=== PATIENT | female | born 1965 | race Caucasian/White ===

== ENCOUNTER 2017-12-08 09:46 | Outpatient (CLI) | payer OTHER ==
[2017-12-08] MEDS ORDERED: IOPAMIDOL-300 100 ML VIAL ONE (09:52)
[2017-12-08] MEDS ORDERED: IOPAMIDOL-300 100 ML VIAL IVP ONE (10:15)
--- NOTE | 2017-12-09 09:33 | CT Report ---
Procedure Date: 12/08/2017 Accession Number: [id number] / [id number] Procedure: CT - Chest W/ CPT Code: FULL RESULT: EXAM: CT CHEST WITH CONTRAST EXAM DATE: 12/08/2017 10:24 AM. CLINICAL HISTORY: MASS POSTERIOR BACK. COMPARISONS: CT ABDOMEN/PELVIS W/WO 02/17/2013. TECHNIQUE: Routine helical CT imaging was performed through the chest. IV contrast: 80 cc Isovue 300. Reconstructions: Coronal and sagittal. In accordance with CT protocol optimization, one or more of the following dose reduction techniques were utilized for this exam: automated exposure control, adjustment of mA and/or KV based on patient size, or use of iterative reconstructive technique. FINDINGS: Lungs/Pleura: No nodules, bronchial thickening, consolidation, or edema. Pulmonary vasculature is normal. No pericardial or pleural effusion. No pneumothorax. Mediastinum: Normal. No adenopathy or masses. The heart and great vessels are normal. Bones: There are mild multilevel degenerative disk changes of the thoracic spine. No bone lesion or acute osseous abnormality. Visualized Abdomen: Unremarkable. Other: There are 2 BB markers on the skin over the upper back/base of the neck at midline, presumably indicating the area of clinical concern. There is no abnormal soft tissue mass or fluid collection identified. The subcutaneous fat adjacent to the BB skin markers appears unremarkable. IMPRESSION: 1. No abnormal soft tissue mass or fluid collection identified at the site marked on the posterior upper back/base of the neck. The underlying subcutaneous fat appears unremarkable. 2. No intrathoracic abnormality identified. [facility]
== END 2017-12-08 09:47 | disposition home or self-care (01) ==
LOC: DI 09:46
PROVIDERS: ATTEND Surgery
DX: D17.1 Benign lipomatous neoplasm of skin and subcutaneous tissue of trunk (principal)
CPT/HCPCS: 71260; Q9967

== ENCOUNTER 2019-09-22 10:58 | Outpatient (CLI) | payer OTHER ==
--- NOTE | 2019-09-26 11:25 | Mammography Report ---
BILATERAL DIGITAL SCREENING MAMMOGRAM 3D/2D WITH CAD: 09/22/2019 CLINICAL: Routine screening. Comparison is made to exams dated: 11/28/2012 mammogram, 11/07/2012 mammogram, 08/17/2011 mammogram, and 08/04/2011 mammogram - [facility]. There are scattered fibroglandular elements in both breasts. Current study was also evaluated with a Computer Aided Detection (CAD) system. No significant masses, calcifications, or other findings are seen in either breast. There has been no significant interval change. IMPRESSION: NEGATIVE There is no mammographic evidence of malignancy. A 1 year screening mammogram is recommended. This exam was interpreted at Station ID: [id number]. NOTE: For mammograms, a report in lay terms will be sent to the patient. Approximately 15% of breast malignancies will not be visualized mammographically. In the management of a palpable breast mass, a negative mammogram must not discourage biopsy of a clinically suspicious lesion. Electronically Signed By: Virgilio [email or web address]:09/22/2019 14:58:08 ACR BI-RADS Category 1: Negative 3341F PARENCHYMAL PATTERN: (A) - The breast(s) demonstrate(s) scattered fibroglandular densities. BI-RADS CATEGORY: (1) - 1 RECOMMENDATION: (ANNUAL) - Recommend routine annual screening mammography. 20200922 1 year screening LATERALITY: (B)
== END 2019-09-22 10:59 | disposition home or self-care (01) ==
LOC: DI 10:58
DX: Z12.31 Encounter for screening mammogram for malignant neoplasm of breast (principal)
CPT/HCPCS: 77063; 77067